=== PATIENT | female | born 1980 | race Caucasian/White ===

== ENCOUNTER → 2018-08-03 | Outpatient (CLI) | payer OTHER ==
[~2018-08-03] MED LIST: ACHD5005 PO; CYCL10TA9 PO; LVT.15T PO; NAPR-243 PO
--- NOTE | 2018-08-03 15:54 | Diagnostic Imaging Report ---
INDICATION: Left back and arm pain as well as tingling in the arms. TIME OF EXAMINATION: 02:57 p.m. FINDINGS: Three views of the cervical spine were obtained. Curvature and alignment is normal. There is some degenerative disc disease at C6-C7 level with mild disc space narrowing and marginal spurring. The prevertebral tissues are within normal limits. The odontoid is intact. No fractures are seen. IMPRESSION: Mild lower cervical spondylosis. No acute bony abnormalities detected. Dictated by: Dictated on workstation # [id number]
== END ==
LOC: RAD 14:26
PROVIDERS: ATTEND Nurse Practitioner
DX: M47.812 Spondylosis without myelopathy or radiculopathy, cervical region (principal)
CPT/HCPCS: 72040

== ENCOUNTER 2018-10-01 15:59 | Outpatient (RCR) | payer OTHER | END 2018-10-01 16:49 | disposition home or self-care (01) | PROVIDERS: ATTEND Nurse Practitioner | DX: M50.323 Other cervical disc degeneration at C6-C7 level (principal) ==

== ENCOUNTER → 2020-07-05 | Outpatient (CLI) | payer OTHER ==
--- NOTE | 2020-07-05 14:44 | Diagnostic Imaging Report ---
INDICATION: Routine screening. No prior mammograms are available for comparison. This is a baseline study. 2-D and 3-D bilateral screening mammography was performed with CAD. Scattered fibroglandular densities are identified bilaterally. No mass or malignant appearing microcalcifications are seen. Axillae are unremarkable. IMPRESSION: BI-RADS Category 1 No mammographic features suspicious for malignancy are identified. ACR BI-RADS Category 1: Negative. Result letter will be mailed to the patient. Note: At least 10% of breast cancer is not imaged by mammography. Dictated by: Dictated on workstation # [id number]
== END ==
LOC: RAD 10:06
PROVIDERS: ATTEND Nurse Practitioner Women's Health
DX: Z12.31 Encounter for screening mammogram for malignant neoplasm of breast (principal)
CPT/HCPCS: 77063; 77067

== ENCOUNTER → 2022-01-20 | Outpatient (CLI) | payer OTHER ==
--- NOTE | 2022-01-20 11:29 | Diagnostic Imaging Report ---
INDICATION: Routine screening. COMPARISON: 07/05/2020. TECHNIQUE: 2D and 3D bilateral screening mammography was performed with CAD. FINDINGS: Both breasts are heterogeneously dense, limiting the sensitivity of mammography. A benign nodule in the outer right breast is stable. No new mass or malignant-appearing microcalcifications are seen. There are benign calcifications present. The axillae are unremarkable. IMPRESSION: No mammographic features suspicious for malignancy are identified. ACR BI-RADS Category 2: Benign findings. Result letter will be mailed to the patient. Note: At least 10% of breast cancer is not imaged by mammography. Dictated by: Dictated on workstation # [id number]
--- NOTE | 2022-01-21 11:12 | RADIOLOGY REPORT ---
Signed Date of Exam:01/20/22 US NON OB PELVIS COMP/TRANSVAG PROCEDURE: Pelvic comp/transvaginal sonogram. TECHNIQUE: Complete transabdominal and transvaginal pelvic ultrasound was performed. In addition, limited pelvic Doppler was performed. INDICATION: Routine screening gynecological exam. FINDINGS: The uterus is anteverted measuring 6.2 x 2.8 x 4.7 cm. The endometrium is poorly visualized due to overlying bowel gas and patient large body habitus. The ovaries are not visualized. No adnexal mass or free fluid is seen. IMPRESSION: Limited study. Patient refused the transvaginal portion of the exam. The endometrium is poorly visualized. The ovaries are not visualized. Dictated by: Dictated on workstation # [id number] Dict: 01/20/22 1043 Trans: 01/20/22 1600 Interpreted by: OK MARX MD Electronically signed by: OK MARX MD 01/20/22 1600 MTDD
== END ==
LOC: RAD 09:18
PROVIDERS: ATTEND Obstetrics & Gynecology
DX: Z12.31 Encounter for screening mammogram for malignant neoplasm of breast (principal)
CPT/HCPCS: 76830; 76856; 77063; 77067

== ENCOUNTER → 2022-02-12 | Outpatient (CLI) | payer OTHER ==
--- NOTE | 2022-02-12 16:43 | Diagnostic Imaging Report ---
PROCEDURE: US left lower extremity venous. TECHNIQUE: Multiple real-time grayscale images were obtained over the left lower extremity in various projections. Additional duplex Doppler and color Doppler images were also obtained. INDICATION: Left leg pain EXAMINATION: Grayscale and color Doppler evaluation of the deep veins of the left lower extremity were performed with waveform analysis. FINDINGS: Continuous venous flow is present. No intraluminal filling defect is identified. There is normal compressibility and response to augmentation. No abnormal perivascular fluid collection is identified. IMPRESSION: No ultrasound evidence of left lower extremity deep venous thrombosis. Dictated by: Dictated on workstation # [id number]
--- NOTE | 2022-02-12 17:13 | Diagnostic Imaging Report ---
CLINICAL HISTORY: Fall. Left knee pain. COMPARISON: None. TECHNIQUE: Three views of the left knee. FINDINGS: There is no acute fracture or dislocation of the left knee. There is slight lateral subluxation of the tibia relative to the femur. Small left knee joint effusion is present. IMPRESSION: 1. No acute fracture or dislocation in the left knee. 2. Slight lateral subluxation of the tibia relative to the femur with small left knee joint effusion. Findings may suggest ligamentous injury in the left knee. If symptoms persist, consider MRI of the left knee to further evaluate. Dictated by: Dictated on workstation # [id number]
== END ==
LOC: RAD 16:04
PROVIDERS: ATTEND Nurse Practitioner Family
DX: M79.605 Pain in left leg (principal); M79.89 Other specified soft tissue disorders; W19.XXXA Unspecified fall, initial encounter
CPT/HCPCS: 73562